=== PATIENT | female | born 1980 | race Caucasian/White ===

== ENCOUNTER 2016-10-07 16:57 | Emergency (ER) | payer MEDICAID ==
[~2016-10-07] VITALS: Ht 170.2 cm; Wt 68.0 kg
[~2016-10-07 16:57] MED LIST: ENTE0.5T2 PO; TACR1CAP4 PO
[2016-10-07 18:47] LABS: Basophils # (auto) 0 uL; Basophils % (auto) 0.5 % (0.0-2.0); Eosinophils # (auto) 0.1 uL; Eosinophils % (auto) 3.1 % (0.0-7.0); Hematocrit 32.8 % (36.0-46.0); Hemoglobin 11.2 g/dL (12.2-16.2); Lymphocytes # (auto) 0.9 uL; Lymphocytes % (auto) 26.8 % (10.0-50.0); Mean Corpuscular Hemoglobin 29.2 pg (28.0-32.0); Mean Corpuscular Hgb Conc. 34.3 g/dL (32.0-36.0); Mean Corpuscular Volume 85.2 fL (80.0-100.0); Mean Platelet Volume 9.9 fL (7.4-10.4); Monocytes # (auto) 0.2 uL; Monocytes % (auto) 7.2 % (0.0-12.0); Neutrophils # (auto) 2.1 uL; Neutrophils % (auto) 62.4 % (37.0-80.0); Platelet Count (auto) 102 10^3/uL (140-450); Red Cell Distribution Width 13.6 % (11.6-16.0); White Blood Cell 3.4 10^3/uL (4.4-10.8)
[2016-10-07] MEDS ORDERED: methylPREDNISolone SOD SUCC 125 MG/2 ML VL IM ONE (19:15)
[2016-10-07] MEDS ORDERED: ALBUTEROL SULF 2.5 MG/0.5ML(0.5%) NEB SOLN NEB ONE (19:15)
[2016-10-07] MEDS ORDERED: IPRATROPIUM BROM 0.5 MG/2.5ML INH SOL NEB ONE (19:15)
[2016-10-07 19:21] LABS: Albumin 3.6 g/dL (3.4-5.0); BUN/Creatinine Ratio 13.9; Calcium 8.5 mg/dL (8.5-10.1); Potassium 4.2 mmol/L (3.5-5.1)
[2016-10-07 19:23] LABS: Bilirubin, Total 0.3 mg/dL (0.2-1.0); Total Protein 6.9 g/dL (6.4-8.2)
[2016-10-07 19:56] VITALS: BP 114/78
== END 2016-10-07 20:23 | disposition home or self-care (01) ==
LOC: ER 17:19
DX: J45.909 Unspecified asthma, uncomplicated (principal); F17.210 Nicotine dependence, cigarettes, uncomplicated
CPT/HCPCS: 36415; 71020; 80053; 85025; 93005; 94640; 96372; 99285; J2930

== ENCOUNTER 2017-03-25 16:33 | Emergency (ER) | payer MEDICAID ==
[~2017-03-25] VITALS: Ht 170.2 cm; Wt 65.8 kg
[2017-03-25 17:09] VITALS: BP 110/80
[2017-03-25 18:08] LABS: Urine Bilirubin Negative (Negative); Urine Blood 2+ /uL (Negative); Urine Color Yellow (Yellow); Urine Glucose Normal (Normal); Urine Hyaline Cast MANY /lpf (0 - 2); Urine Ketone Negative (Negative); Urine Mucus FEW (None Seen); Urine Nitrite Negative (Negative); Urine RBC 253 /hpf (0 - 4); Urine Squamous Epithelial Cell FEW /hpf (<5)
[2017-03-25] MEDS ORDERED: IBUPROFEN 600 MG TAB PO ONE (20:15)
== END 2017-03-25 20:37 | disposition home or self-care (01) ==
LOC: ER 16:33
DX: K59.00 Constipation, unspecified (principal); R31.9 Hematuria, unspecified; J45.909 Unspecified asthma, uncomplicated
CPT/HCPCS: 74176; 81001; 81025

== ENCOUNTER 2017-03-26 08:32 | Emergency (ER) | payer MEDICAID ==
[~2017-03-26] VITALS: Ht 170.2 cm; Wt 65.8 kg
[2017-03-26 09:25] LABS: Urine Bilirubin Negative (Negative); Urine Blood 2+ /uL (Negative); Urine Color Yellow (Yellow); Urine Glucose Normal (Normal); Urine Hyaline Cast FEW /lpf (0 - 2); Urine Ketone Negative (Negative); Urine Nitrite Negative (Negative); Urine RBC 47 /hpf (0 - 4); Urine Squamous Epithelial Cell FEW /hpf (<5); Urine Urobilinogen Normal (Negative); Urine pH 5.5 (5.0-8.0)
[2017-03-26 09:36] LABS: Basophils # (auto) 0 uL; Basophils % (auto) 0.3 % (0.0-2.0); CONDITION Y; Eosinophils # (auto) 0.2 uL; Eosinophils % (auto) 4.1 % (0.0-7.0); Hematocrit 35.5 % (36.0-46.0); Hemoglobin 12.2 g/dL (12.2-16.2); Lymphocytes # (auto) 1.4 uL; Lymphocytes % (auto) 30.7 % (10.0-50.0); Mean Corpuscular Hemoglobin 29.1 pg (28.0-32.0); Mean Corpuscular Hgb Conc. 34.4 g/dL (32.0-36.0); Mean Corpuscular Volume 84.6 fL (80.0-100.0); Mean Platelet Volume 9.4 fL (7.4-10.4); Monocytes # (auto) 0.2 uL; Monocytes % (auto) 5.5 % (0.0-12.0); Neutrophils # (auto) 2.7 uL; Neutrophils % (auto) 59.4 % (37.0-80.0); Platelet Count (auto) 152 10^3/uL (140-450); Red Cell Distribution Width 14.4 % (11.6-16.0); White Blood Cell 4.5 10^3/uL (4.4-10.8)
[2017-03-26 09:51] LABS: Calcium 8.9 mg/dL (8.5-10.1); Potassium 5.1 mmol/L (3.5-5.1)
[2017-03-26 09:53] LABS: BUN/Creatinine Ratio 13.4
[2017-03-26 09:56] LABS: Bilirubin, Total 0.5 mg/dL (0.2-1.0); Total Protein 7.3 g/dL (6.4-8.2)
[2017-03-26] MEDS ORDERED: NALBUPHINE HCL 10 MG/1ml INJECTION IV ONE (10:30)
[2017-03-26] MEDS ORDERED: PROMETHAZINE HCL 25 MG/ML 1ML IV PRN (10:30)
[2017-03-26 11:02] LABS: INR 0.98 (0.9-1.15); Partial Thromboplastin Time 34.2 sec (22.64-33.71); Prothrombin Time 10.7 sec (9.37-12.3)
[2017-03-26 11:15] LABS: Magnesium 2.5 mg/dL (1.6-2.6)
[2017-03-26 12:07] VITALS: BP 99/52
== END 2017-03-26 12:41 | disposition home or self-care (01) ==
LOC: ER 08:32
DX: S33.5XXA Sprain of ligaments of lumbar spine, initial encounter (principal); Z98.51 Tubal ligation status; M79.1 Myalgia; N18.4 Chronic kidney disease, stage 4 (severe); Z94.4 Liver transplant status; R11.2 Nausea with vomiting, unspecified; X58.XXXA Exposure to other specified factors, initial encounter; Y93.89 Activity, other specified; Y92.89 Other specified places as the place of occurrence of the external cause; Y99.8 Other external cause status
CPT/HCPCS: 36415; 71020; 80053; 81001; 81025; 83690; 83735; 85025; 85610; 85730; 93005; 96374; 96375; 99285; J2300; J2550

== ENCOUNTER 2017-03-30 00:42 | Emergency (ER) | payer MEDICAID ==
[~2017-03-30] VITALS: Ht 167.6 cm; Wt 63.5 kg
[2017-03-30 02:30] LABS: Basophils # (auto) 0 uL; Basophils % (auto) 0.5 % (0.0-2.0); CONDITION Y; Eosinophils # (auto) 0.1 uL; Eosinophils % (auto) 2.8 % (0.0-7.0); Hematocrit 30.4 % (36.0-46.0); Hemoglobin 10.3 g/dL (12.2-16.2); Lymphocytes # (auto) 1.1 uL; Lymphocytes % (auto) 27.4 % (10.0-50.0); Mean Corpuscular Hgb Conc. 33.8 g/dL (32.0-36.0); Mean Corpuscular Volume 85.7 fL (80.0-100.0); Mean Platelet Volume 9.6 fL (7.4-10.4); Monocytes # (auto) 0.2 uL; Monocytes % (auto) 4.9 % (0.0-12.0); Neutrophils # (auto) 2.5 uL; Neutrophils % (auto) 64.4 % (37.0-80.0); Platelet Count (auto) 116 10^3/uL (140-450); Red Cell Distribution Width 14.6 % (11.6-16.0); White Blood Cell 3.8 10^3/uL (4.4-10.8)
[2017-03-30 02:58] LABS: Albumin 3.4 g/dL (3.4-5.0); BUN/Creatinine Ratio 13.3; Calcium 8.1 mg/dL (8.5-10.1); Potassium 4.3 mmol/L (3.5-5.1)
[2017-03-30 03:01] LABS: Bilirubin, Total 0.3 mg/dL (0.2-1.0); Total Protein 6.6 g/dL (6.4-8.2)
[2017-03-30 08:45] LABS: Urine Bilirubin Negative (Negative); Urine Blood 2+ /uL (Negative); Urine Color Colorless (Yellow); Urine Glucose Normal (Normal); Urine Ketone Negative (Negative); Urine Nitrite Negative (Negative); Urine RBC 3 /hpf (0 - 4); Urine Squamous Epithelial Cell FEW /hpf (<5); Urine Urobilinogen Normal (Negative); Urine pH 5.5 (5.0-8.0)
[2017-03-30 10:57] VITALS: BP 106/67
== END 2017-03-30 11:40 | disposition home or self-care (01) ==
LOC: EDBD 00:42 → ER 00:42
DX: R10.9 Unspecified abdominal pain (principal); R82.71 Bacteriuria; Z94.4 Liver transplant status; Z87.442 Personal history of urinary calculi; J45.909 Unspecified asthma, uncomplicated; F12.10 Cannabis abuse, uncomplicated; G89.29 Other chronic pain; M54.9 Dorsalgia, unspecified
CPT/HCPCS: 36415; 80053; 81001; 85025

== ENCOUNTER 2017-09-12 13:18 | Emergency (ER) | payer MEDICAID ==
[~2017-09-12] VITALS: Ht 170.2 cm; Wt 68.0 kg
[~2017-09-12 13:18] MED LIST changes: +ENTE0.5T PO; -ENTE0.5T2 PO
[2017-09-12 13:52] VITALS: BP 127/82
[2017-11-06] MEDS ORDERED: HYDR50TA69 PO (17:43)
[2017-11-06] MEDS ORDERED: MIRT15TA3 PO (17:43)
== END 2017-09-12 14:14 | disposition home or self-care (01) ==
LOC: ER 13:18
DX: S76.012A Strain of muscle, fascia and tendon of left hip, initial encounter (principal); J45.909 Unspecified asthma, uncomplicated; Z87.442 Personal history of urinary calculi; Z98.51 Tubal ligation status; W07.XXXA Fall from chair, initial encounter; Y93.01 Activity, walking, marching and hiking; Y92.000 Kitchen of unspecified non-institutional (private) residence as the place of occurrence of the external cause; Y99.8 Other external cause status
CPT/HCPCS: 73502

== ENCOUNTER 2017-12-30 20:13 | Emergency (ER) | payer MEDICAID ==
[~2017-12-30] VITALS: Ht 170.2 cm; Wt 65.8 kg
[~2017-12-30 20:13] MED LIST changes: +HYDR50TA69 PO; +MIRT15TA3 PO
[2017-12-30 20:20] VITALS: BP 106/73
[2017-12-30] MEDS ORDERED: HYDROcodone-ACET 10/325MG TAB PO ONE (23:15)
== END 2017-12-30 23:53 | disposition home or self-care (01) ==
LOC: ER 20:13
DX: S50.12XA Contusion of left forearm, initial encounter (principal); S50.11XA Contusion of right forearm, initial encounter; S60.212A Contusion of left wrist, initial encounter; S60.211A Contusion of right wrist, initial encounter; M79.1 Myalgia; J45.909 Unspecified asthma, uncomplicated; W01.0XXA Fall on same level from slipping, tripping and stumbling without subsequent striking against object, initial encounter; Y93.89 Activity, other specified; Y92.89 Other specified places as the place of occurrence of the external cause; Y99.8 Other external cause status; Z87.442 Personal history of urinary calculi
CPT/HCPCS: 73030; 73090; 73100

== ENCOUNTER 2018-01-15 10:49 | Emergency (ER) | payer MEDICAID, OTHER ==
[~2018-01-15] VITALS: Ht 170.2 cm; Wt 64.9 kg
[2018-01-15 11:18] VITALS: BP 133/87
== END 2018-01-15 12:04 | disposition home or self-care (01) ==
LOC: ER 10:49
DX: L03.031 Cellulitis of right toe (principal); J45.909 Unspecified asthma, uncomplicated; Z79.899 Other long term (current) drug therapy; Z87.442 Personal history of urinary calculi; Z98.51 Tubal ligation status

== ENCOUNTER 2019-10-04 15:13 | Emergency (ER) | payer MEDICAID ==
[~2019-10-04] VITALS: Ht 170.2 cm; Wt 70.3 kg
[~2019-10-04 15:13] MED LIST changes: -MIRT15TA3 PO; +MIRT1TAB38 PO
[2019-10-04 15:25] VITALS: BP 105/79
[2019-10-04 16:07] LABS: Albumin 3.6 g/dL (3.4-5.0); Calcium 8.4 mg/dL (8.5-10.1); Potassium 4.5 mmol/L (3.5-5.1)
[2019-10-04 16:09] LABS: BUN/Creatinine Ratio 11.8
[2019-10-04 16:11] LABS: Bilirubin, Total 0.3 mg/dL (0.2-1.0); Total Protein 7.3 g/dL (6.4-8.2)
[2019-10-04 16:48] LABS: Basophils # (auto) 0 uL; Monocytes # (auto) 0.2 uL; Neutrophils # (auto) 2.6 uL
[2019-10-04 17:00] LABS: Partial Thromboplastin Time 26.5 sec (23.64-32.05)
[2019-10-04 17:02] LABS: Basophils % (auto) 0.6 % (0.0-2.0); Eosinophils # (auto) 0.2 uL; Eosinophils % (auto) 3.8 % (0.0-7.0); Hematocrit 27.9 % (36.0-46.0); Hemoglobin 8.7 g/dL (12.2-16.2); Lymphocytes % (auto) 25.8 % (10.0-50.0); Mean Corpuscular Hemoglobin 20.3 pg (28.0-32.0); Mean Corpuscular Volume 65.5 fL (80.0-100.0); Monocytes % (auto) 5.9 % (0.0-12.0); Neutrophils % (auto) 63.9 % (37.0-80.0); Platelet Count (auto) 105 10^3/uL (140-450); Red Blood Cells 4.26 10^6/uL (4.0-5.20); Red Cell Distribution Width 18.9 % (11.8-14.3)
[2019-10-04 17:05] LABS: Urine Bacteria FEW /hpf (None Seen); Urine Blood 2+ /uL (Negative); Urine Hyaline Cast MANY /lpf (0 - 2); Urine Mucus FEW (None Seen); Urine Specific Gravity 1.024 (1.001-1.035); Urine WBC 6 /hpf (0 - 5)
== END 2019-10-05 00:27 | disposition left against medical advice (07) ==
LOC: ER 15:17
DX: N93.9 Abnormal uterine and vaginal bleeding, unspecified (principal); R11.2 Nausea with vomiting, unspecified; J45.909 Unspecified asthma, uncomplicated; Z79.899 Other long term (current) drug therapy
CPT/HCPCS: 36415; 80053; 81001; 84702; 85025; 85610; 85730

== ENCOUNTER 2020-05-29 15:20 | Emergency (ER) | payer MEDICAID ==
[~2020-05-29] VITALS: Ht 170.2 cm; Wt 68.0 kg
[2020-05-29 16:21] LABS: Urine Bacteria FEW /hpf (None Seen); Urine Blood Negative /uL (Negative); Urine Mucus FEW (None Seen); Urine Specific Gravity 1.008 (1.001-1.035); Urine WBC 4 /hpf (0 - 5)
[2020-05-29 18:14] LABS: Basophils # (auto) 0 10 ^3/uL (0-0.2); Eosinophils # (auto) 0.1 10 ^3/uL (0-0.8); Lymphocytes # (auto) 1.1 10 ^3/uL (0.4-5.4); Mean Corpuscular Volume 61.8 fL (80.0-100.0); Nucleated Red Blood Cells % 0.1 %; White Blood Cell 4.4 10^3/uL (4.4-10.8)
[2020-05-29 18:15] LABS: Basophils % (auto) 0.3 % (0.0-2.0); Eosinophils % (auto) 1.4 % (0.0-7.0); Hematocrit 23.2 % (36.0-46.0); Lymphocytes % (auto) 23.9 % (10.0-50.0); Mean Corpuscular Hemoglobin 18.8 pg (28.0-32.0); Mean Corpuscular Hgb Conc. 30.4 g/dL (32.0-36.0); Monocytes # (auto) 0.3 10 ^3/uL (0-1.3); Monocytes % (auto) 6.1 % (0.0-12.0); Neutrophils % (auto) 68.3 % (37.0-80.0); Platelet Count (auto) 124 10^3/uL (140-450); Red Blood Cells 3.74 10^6/uL (4.0-5.20)
[2020-05-29 18:24] LABS: Red Cell Distribution Width 20.1 % (11.8-14.3)
[2020-05-29 18:28] LABS: INR 0.98 (0.9-1.15); Partial Thromboplastin Time 25.1 sec (23.0-31.2)
[2020-05-29 18:33] LABS: Albumin 3.9 g/dL (3.4-5.0); BUN/Creatinine Ratio 8.5; Calcium 9.2 mg/dL (8.5-10.1); Potassium 4.2 mmol/L (3.5-5.1)
[2020-05-29 18:36] LABS: Bilirubin, Total 0.6 mg/dL (0.2-1.0); Total Protein 7.5 g/dL (6.4-8.2)
[2020-05-29] MEDS ORDERED: FERROUS SULFATE 325 MG TAB PO ONE (18:45)
[2020-05-29 18:50] VITALS: BP 120/68
== END 2020-05-29 18:55 | disposition home or self-care (01) ==
LOC: ER 15:20
DX: D64.9 Anemia, unspecified (principal)
CPT/HCPCS: 36415; 80053; 81001; 85025; 85610; 85730; 86850; 86900; 86901

== ENCOUNTER 2021-06-19 09:58 | Emergency (ER) | payer MEDICAID ==
[~2021-06-19] VITALS: Ht 170.2 cm; Wt 86.2 kg
[2021-06-19] MEDS ORDERED: ONDANSETRON ODT 4 MG TAB PO ONE (12:30)
[2021-06-19] MEDS ORDERED: ACETAMINOPHEN/CODEINE#3 (300/30mg) TAB PO ONE (12:30)
[2021-06-19 13:27] VITALS: BP 132/80
== END 2021-06-19 13:30 | disposition home or self-care (01) ==
LOC: ER 09:58
DX: G43.909 Migraine, unspecified, not intractable, without status migrainosus (principal); J45.909 Unspecified asthma, uncomplicated
CPT/HCPCS: 70450; 99284; Q0162

== ENCOUNTER 2023-03-06 08:58 | Emergency (ER) | payer MEDICAID ==
[~2023-03-06] VITALS: Ht 170.2 cm; Wt 96.6 kg
[2023-03-06 09:24] VITALS: BP 125/71; PULSE 82; RESP 16; TEMP 97.5; O2SAT 96
== END 2023-03-06 10:26 | disposition home or self-care (01) ==
LOC: ER 08:58
DX: S76.012A Strain of muscle, fascia and tendon of left hip, initial encounter (principal); S93.492A Sprain of other ligament of left ankle, initial encounter; F41.9 Anxiety disorder, unspecified; J45.909 Unspecified asthma, uncomplicated; F32.9 Major depressive disorder, single episode, unspecified; F17.200 Nicotine dependence, unspecified, uncomplicated; F15.90 Other stimulant use, unspecified, uncomplicated; Z87.442 Personal history of urinary calculi; Z98.890 Other specified postprocedural states; Z79.899 Other long term (current) drug therapy; W18.39XA Other fall on same level, initial encounter; Y93.01 Activity, walking, marching and hiking; Y92.89 Other specified places as the place of occurrence of the external cause; Y99.8 Other external cause status
CPT/HCPCS: 73502; 73610

== ENCOUNTER 2023-08-01 13:05 | Emergency (ER) | payer MEDICAID ==
[2023-08-01] MEDS ORDERED: PROCHLORPERAZINE EDISYLATE 5 MG/ML 2ML VIAL IV ONE (13:45)
[2023-08-01] MEDS ORDERED: PANTOPRAZOLE 40 MG/10 ML VIAL INJ IV ONE (13:45)
[2023-08-01] MEDS ORDERED: SODIUM CHLORIDE 0.9% 1,000 ML IV ONE (13:45)
[2023-08-01 14:29] LABS: Alanine Aminotransferase 13 U/L (7-40); Alkaline Phosphatase 65 U/L (46-116); Anion Gap 11 (5-15); Aspartate Aminotransferase 10 U/L (13-40); BUN/Creatinine Ratio 15.7 (10.0-20.0); Blood Urea Nitrogen 22 mg/dL (9-23); Calcium 9.5 mg/dL (8.5-10.1); Carbon Dioxide 21 mmol/L (20-30); Chloride 107 mmol/L (98-107); Glucose 121 mg/dL (74-106); Potassium 3.9 mmol/L (3.5-5.1); Sodium 139 mmol/L (136-145)
[2023-08-01 14:30] LABS: Albumin 4.6 g/dL (3.2-4.8); Bilirubin, Total 0.4 mg/dL (0.2-1.0); Total Protein 7.2 g/dL (5.7-8.2)
[2023-08-01 15:33] LABS: Urine Bacteria NONE SEEN /hpf (None Seen); Urine Blood 1+ /uL (Negative); Urine Clarity Clear (Clear); Urine Color Yellow (Yellow); Urine Mucus FEW (None Seen); Urine Protein, UAD TRACE (Negative); Urine Specific Gravity 1.022 (1.001-1.035); Urine WBC 4 /hpf (0 - 5)
[2023-08-01 15:41] VITALS: BP 119/71; PULSE 53; RESP 18; TEMP 97.7; O2SAT 98
[2023-08-01] MEDS ORDERED: ZOFR4T PO (15:44)
== END 2023-08-01 16:38 | disposition home or self-care (01) ==
LOC: ER 13:05
DX: R11.10 Vomiting, unspecified (principal); G89.4 Chronic pain syndrome; J45.909 Unspecified asthma, uncomplicated; F12.10 Cannabis abuse, uncomplicated; R51.9 Headache, unspecified; Z98.51 Tubal ligation status; Z87.442 Personal history of urinary calculi
CPT/HCPCS: 36415; 80053; 81001; 96361; 96374; 96375; 99284; C9113; J0780; J7030

== ENCOUNTER 2024-05-10 00:07 | Inpatient (IN) | payer MEDICAID ==
[~2024-05-10] VITALS: Ht 170.2 cm; Wt 97.6 kg
[~2024-05-10 00:07] MED LIST changes: +ZOFR4T PO
[2024-05-10 01:59] LABS: Basophils # (auto) 0 10 ^3/uL (0-0.2); Basophils % (auto) 0.3 % (0.0-2.0); Eosinophils # (auto) 0 10 ^3/uL (0-0.8); Hematocrit 47.1 % (36.0-46.0); Hemoglobin 16.5 g/dL (12.2-16.2); Lymphocytes # (auto) 1.5 10 ^3/uL (0.4-5.4); Lymphocytes % (auto) 10.2 % (10.0-50.0); Mean Corpuscular Hemoglobin 29.5 pg (28.0-32.0); Mean Corpuscular Hgb Conc. 35.1 g/dL (32.0-36.0); Mean Corpuscular Volume 84.1 fL (80.0-100.0); Monocytes # (auto) 0.8 10 ^3/uL (0-1.3); Monocytes % (auto) 5.6 % (0.0-12.0); Neutrophils # (auto) 12.1 10 ^3/uL (1.6-8.6); Neutrophils % (auto) 83.9 % (37.0-80.0); Nucleated Red Blood Cells % 0.1 %; Platelet Count (auto) 264 10^3/uL (140-450); Red Cell Distribution Width 14.5 % (11.8-14.3); White Blood Cell 14.4 10^3/uL (4.4-10.8)
[2024-05-10 02:16] LABS: Albumin 5.4 g/dL (3.2-4.8); Alkaline Phosphatase 78 U/L (46-116); Anion Gap 23 (5-15); Aspartate Aminotransferase 11 U/L (13-40); BUN/Creatinine Ratio 7.9 (10.0-20.0); Bilirubin, Total 0.9 mg/dL (0.2-1.0); Blood Urea Nitrogen 21 mg/dL (9-23); Calcium 11.1 mg/dL (8.7-10.4); Carbon Dioxide 15 mmol/L (20-31); Chloride 95 mmol/L (98-107); Glucose 218 mg/dL (74-106); Lipase 28 U/L (12-53); Potassium 3.3 mmol/L (3.5-5.1); Sodium 133 mmol/L (136-145)
[2024-05-10 02:27] LABS: Alanine Aminotransferase 9 U/L (7-40)
[2024-05-10 02:49] LABS: Lactic Acid w/Reflex 3.5 mmol/L (0.4-2.0)
[2024-05-10 03:40] VITALS: PULSE 94; RESP 17; O2SAT 98
[2024-05-10] MEDS: SODIUM CHLORIDE 0.9% 1,000 ML IV ONE (03:43)
[2024-05-10] MEDS: ONDANSETRON HCL 4 MG/2 ML VIAL IV ONE (03:44)
[2024-05-10] MEDS: FAMOTIDINE (10MG/ML) 2ML VL IV ONE ×2 (03:46→11:19)
[2024-05-10] MEDS: KETOROLAC TROMETH 30 MG/ML 1ML VIAL IV ONE ×2 (03:46→16:17)
[2024-05-10 08:43] VITALS: PULSE 91; RESP 17; O2SAT 96
[2024-05-10] MEDS ORDERED: HYDROXYZINE HCL 50 MG PO SCH (09:45)
[2024-05-10] MEDS ORDERED: NITROGLYCERIN 0.4 MG SL TAB SL PRN (09:45)
[2024-05-10] MEDS ORDERED: DOCUSATE SOD 100 MG CAP PO PRN (09:45)
[2024-05-10] MEDS ORDERED: FAMOTIDINE (10MG/ML) 2ML VL IV SCH (10:00)
[2024-05-10] MEDS ORDERED: [UNRECOGNIZED DRUG - OTHER] PO SCH (10:00)
[2024-05-10] MEDS: FAMOTIDINE (10MG/ML) 2ML VL IV SCH (10:15)
[2024-05-10 10:34] LABS: Magnesium 1.8 mg/dL (1.6-2.6)
[2024-05-10 10:35] LABS: Phosphorus 2.1 mg/dL (2.4-5.1)
[2024-05-10] MEDS: SODIUM CHLORIDE 0.9% 1,000 ML IV SCH (11:18)
[2024-05-10] MEDS: cefTRIAXone 1GM/50ML D5W 50 ML IV ONE ×2 (11:19→11:35)
[2024-05-10] MEDS: PANTOPRAZOLE 40 MG/10 ML VIAL INJ IV ONE (11:19)
[2024-05-10] MEDS: ONDANSETRON HCL 4 MG/2 ML VIAL IV PRN (12:07)
[2024-05-10] MEDS: ONDANSETRON HCL 4 MG/2 ML VIAL ONE (12:08)
[2024-05-10 13:14] VITALS: PULSE 70; RESP 18; O2SAT 96
[2024-05-10 13:19] VITALS: PULSE 70; RESP 18; O2SAT 96
[2024-05-10] MEDS ORDERED: KETOROLAC TROMETH 30 MG/ML 1ML VIAL IV ONE (16:00)
[2024-05-10] MEDS: MIRTAZAPINE PO SCH (18:00)
[2024-05-10] MEDS ORDERED: MIRTAZAPINE PO SCH (18:00)
[2024-05-10] MEDS: PANTOPRAZOLE 40 MG/10 ML VIAL INJ IV SCH (21:40)
[2024-05-10] MEDS ORDERED: TACROLIMUS 1 MG CAP PO SCH ×2 (22:00)
[2024-05-10 22:34] VITALS: BP_SYST 107; BP_SYST 120; BP_DIAS 60; BP_DIAS 64; PULSE 67; PULSE 72; RESP 16; RESP 17; TEMP 97.5; TEMP 98; O2SAT 96; O2SAT 97
[2024-05-10 23:34] VITALS: PULSE 75; RESP 18; O2SAT 98
[2024-05-11 06:39] LABS: Basophils # (auto) 0 10 ^3/uL (0-0.2); Basophils % (auto) 0.1 % (0.0-2.0); Eosinophils # (auto) 0 10 ^3/uL (0-0.8); Eosinophils % (auto) 0.1 % (0.0-7.0); Hematocrit 37.4 % (36.0-46.0); Hemoglobin 13.3 g/dL (12.2-16.2); Lymphocytes % (auto) 22.7 % (10.0-50.0); Mean Corpuscular Hemoglobin 30.3 pg (28.0-32.0); Mean Corpuscular Hgb Conc. 35.6 g/dL (32.0-36.0); Mean Corpuscular Volume 85.1 fL (80.0-100.0); Monocytes # (auto) 0.6 10 ^3/uL (0-1.3); Monocytes % (auto) 6.5 % (0.0-12.0); Neutrophils # (auto) 6.2 10 ^3/uL (1.6-8.6); Neutrophils % (auto) 70.6 % (37.0-80.0); Nucleated Red Blood Cells % 0.1 %; Platelet Count (auto) 112 10^3/uL (140-450); Red Blood Cells 4.39 10^6/uL (4.0-5.20); Red Cell Distribution Width 14.5 % (11.8-14.3); White Blood Cell 8.8 10^3/uL (4.4-10.8)
[2024-05-11 06:42] LABS: Alanine Aminotransferase 10 U/L (7-40); Alkaline Phosphatase 56 U/L (46-116); Anion Gap 12 (5-15); Aspartate Aminotransferase 18 U/L (13-40); BUN/Creatinine Ratio 12.9 (10.0-20.0); Blood Urea Nitrogen 30 mg/dL (9-23); Calcium 8.7 mg/dL (8.7-10.4); Carbon Dioxide 25 mmol/L (20-31); Chloride 101 mmol/L (98-107); Glucose 77 mg/dL (74-106); Potassium 2.7 mmol/L (3.5-5.1); Sodium 138 mmol/L (136-145)
[2024-05-11 06:43] LABS: Bilirubin, Total 0.8 mg/dL (0.2-1.0); Total Protein 6.6 g/dL (5.7-8.2)
[2024-05-11] MEDS ORDERED: TACROLIMUS 1 MG CAP PO SCH ×2 (07:00)
[2024-05-11 08:30] VITALS: PULSE 75; PULSE 76; RESP 20; O2SAT 99
[2024-05-11 09:00] VITALS: BP 104/69; PULSE 79; RESP 20; TEMP 98.8; O2SAT 99
[2024-05-11] MEDS: cefTRIAXone 1GM/50ML D5W 50 ML IV SCH (09:25)
[2024-05-11] MEDS ORDERED: hydrOXYzine 25 MG TAB or CAP PO PRN (10:00)
[2024-05-11] MEDS: MAGNESIUM SULFATE 1GM/100ML 100 ML IV ONE (10:22)
[2024-05-11] MEDS: POTASSIUM CHLORIDE 80 MEQ, LIDOCAINE 1% (LOCAL ANESTH.) 6 ML in SODIUM CHL 0.9% 500 ML IV STA (10:32)
[2024-05-11] MEDS: KETOROLAC TROMETH 30 MG/ML 1ML VIAL IV PRN (10:33)
[2024-05-11 11:50] LABS: Potassium 3.4 mmol/L (3.5-5.1)
[2024-05-11 11:57] LABS: Magnesium 2.3 mg/dL (1.6-2.6)
[2024-05-11 13:00] VITALS: BP 127/72; PULSE 73; RESP 20; TEMP 98.1; O2SAT 94
[2024-05-11 13:00] LABS: Urine Bacteria None Seen /hpf (None Seen)
[2024-05-11 13:24] LABS: Urine Blood Negative /uL (Negative); Urine Clarity Clear (Clear); Urine Color Yellow (Yellow); Urine Hyaline Cast FEW /lpf (0 - 2); Urine Mucus FEW (None Seen); Urine Protein, UAD TRACE (Negative); Urine Urobilinogen Normal (Negative); Urine WBC 4 /hpf (0 - 5); Urine pH 5.5 (5.0-9.0)
[2024-05-11 16:39] VITALS: BP 129/81; PULSE 90; RESP 20; TEMP 98.6; O2SAT 97
[2024-05-11 18:08] LABS: Potassium 3.5 mmol/L (3.5-5.1)
[2024-05-11 18:15] LABS: Magnesium 2.1 mg/dL (1.6-2.6)
[2024-05-11 20:00] VITALS: PULSE 77
[2024-05-11 20:56] VITALS: BP 143/79; PULSE 78; RESP 18; TEMP 98.1; O2SAT 96
[2024-05-11 21:21] LABS: Amphetamine Screen, Urine Neg (NEGATIVE); Barbiturate Scree,Urine Neg (NEGATIVE); Benzodiazephine Screen, Urine Neg (NEGATIVE); Cannabinoid Screen, Urine Pos (NEGATIVE); Cocaine Screen, Urine Neg (NEGATIVE); Opiate Scree,Urine Neg (NEGATIVE); Phencyclidine Screen, Urine Neg (NEGATIVE)
[2024-05-11] MEDS: POTASSIUM CHLORIDE 20 MEQ, LIDOCAINE 1% (LOCAL ANESTH.) 2 ML in SODIUM CHL 0.9% 100 ML IV ONE (22:01)
[2024-05-11] MEDS: MORPHINE SULFATE INJ 2 MG/ml SYRG IV PRN (22:35)
[2024-05-12] VITALS (8 sets, daily range): BP systolic 108–140; BP diastolic 67–83; PULSE 64–85; RESP 15–20; TEMP 97.6–98.7; O2SAT 93–98
[2024-05-12 01:38] LABS: Creatinine, Urine 208.73 mg/dL (30.0-125.0)
[2024-05-12 02:46] LABS: COVID19 ANTIGEN SOFIA FIA NEGATIVE (NEGATIVE); Rapid Influenza A Negative (Negative); Rapid Influenza B Negative (Negative)
[2024-05-12 06:19] LABS: Basophils # (auto) 0 10 ^3/uL (0-0.2); Basophils % (auto) 0.3 % (0.0-2.0); Eosinophils # (auto) 0 10 ^3/uL (0-0.8); Eosinophils % (auto) 0.9 % (0.0-7.0); Hematocrit 35.1 % (36.0-46.0); Hemoglobin 12.3 g/dL (12.2-16.2); Lymphocytes # (auto) 1.5 10 ^3/uL (0.4-5.4); Lymphocytes % (auto) 30.6 % (10.0-50.0); Mean Corpuscular Hemoglobin 29.8 pg (28.0-32.0); Mean Corpuscular Volume 85.3 fL (80.0-100.0); Monocytes # (auto) 0.4 10 ^3/uL (0-1.3); Monocytes % (auto) 7.2 % (0.0-12.0); Neutrophils # (auto) 3.1 10 ^3/uL (1.6-8.6); Nucleated Red Blood Cells % 0.3 %; Platelet Count (auto) 107 10^3/uL (140-450); Red Blood Cells 4.11 10^6/uL (4.0-5.20); Red Cell Distribution Width 14.4 % (11.8-14.3)
[2024-05-12 06:24] LABS: Calcium 8.6 mg/dL (8.7-10.4); Chloride 108 mmol/L (98-107); Potassium 3.7 mmol/L (3.5-5.1); Sodium 141 mmol/L (136-145)
[2024-05-12 06:25] LABS: Anion Gap 9 (5-15); Carbon Dioxide 24 mmol/L (20-31)
[2024-05-12 06:30] LABS: BUN/Creatinine Ratio 13.4 (10.0-20.0); Blood Urea Nitrogen 19 mg/dL (9-23); Glucose 75 mg/dL (74-106)
[2024-05-12] MEDS: [UNRECOGNIZED DRUG - OTHER] PO SCH (08:39)
[2024-05-12] MEDS ORDERED: FLUMAZENIL 0.1 MG/ML INJ 10ML MDV IV ONE (12:54)
[2024-05-12] MEDS ORDERED: SODIUM CHLORIDE LOCK 10 ML ONE (13:00)
[2024-05-12] MEDS ORDERED: NALOXONE HCL 0.4 MG/ML VIAL ONE (13:00)
[2024-05-12] MEDS: MIDAZOLAM HCL 5 MG/ML-1ML VIAL ONE (13:16)
[2024-05-12] MEDS: fentaNYL CITRATE 100 MCG/2 ML VL ONE ×2 (13:16→13:20)
[2024-05-12] MEDS: LIDOCAINE VISCOUS 2% 15ML UD ONE (13:16)
[2024-05-12] MEDS: diphenhdrAMINE HCL 50 MG/1 ML VL ONE (13:16)
[2024-05-12] MEDS ORDERED: PANT40TA2 PO (13:50)
[2024-05-12] MEDS ORDERED: SUCR1SUS26 PO (13:50)
[2024-05-12] MEDS: SUCRALFATE 1 GM/10 ML ORAL SUSP GT SCH (17:53)
[2024-05-13 05:00] VITALS: BP 131/82; PULSE 69; RESP 18; TEMP 97.9; O2SAT 98
[2024-05-13 06:16] LABS: Anion Gap 10 (5-15); Basophils # (auto) 0 10 ^3/uL (0-0.2); Basophils % (auto) 0.5 % (0.0-2.0); Carbon Dioxide 22 mmol/L (20-31); Chloride 109 mmol/L (98-107); Eosinophils # (auto) 0.1 10 ^3/uL (0-0.8); Eosinophils % (auto) 2.4 % (0.0-7.0); Hematocrit 37.5 % (36.0-46.0); Hemoglobin 13.3 g/dL (12.2-16.2); Lymphocytes # (auto) 1.5 10 ^3/uL (0.4-5.4); Lymphocytes % (auto) 37.7 % (10.0-50.0); Mean Corpuscular Hemoglobin 30.5 pg (28.0-32.0); Mean Corpuscular Hgb Conc. 35.4 g/dL (32.0-36.0); Mean Corpuscular Volume 86.1 fL (80.0-100.0); Monocytes # (auto) 0.3 10 ^3/uL (0-1.3); Monocytes % (auto) 7.6 % (0.0-12.0); Neutrophils % (auto) 51.8 % (37.0-80.0); Nucleated Red Blood Cells % 0.1 %; Platelet Count (auto) 107 10^3/uL (140-450); Potassium 3.8 mmol/L (3.5-5.1); Red Blood Cells 4.35 10^6/uL (4.0-5.20); Red Cell Distribution Width 14.3 % (11.8-14.3); Sodium 141 mmol/L (136-145); White Blood Cell 3.9 10^3/uL (4.4-10.8)
[2024-05-13 06:22] LABS: BUN/Creatinine Ratio 6.6 (10.0-20.0); Glucose 76 mg/dL (74-106)
[2024-05-13 06:43] LABS: Blood Urea Nitrogen 8 mg/dL (9-23)
[2024-05-13 08:00] VITALS: PULSE 68; RESP 16; O2SAT 98
[2024-05-13 09:00] VITALS: BP 142/82; PULSE 69; RESP 18; TEMP 97.2; O2SAT 98
[2024-05-13] MEDS: ONDANSETRON HCL 4 MG/2 ML VIAL IV ONE (09:45)
[2024-05-13] MEDS: NYSTATIN (MOUTH-THROAT) 500,000 UNITS/5 ML SUSP MT SCH (10:39)
[2024-05-13 13:00] VITALS: BP 146/86; PULSE 93; RESP 18; TEMP 98; O2SAT 96
[2024-05-13 17:00] VITALS: BP 135/88; PULSE 77; RESP 18; TEMP 98.2; O2SAT 94
[2024-05-13 21:00] VITALS: BP 141/85; PULSE 69; RESP 16; TEMP 98.3; O2SAT 96
[2024-05-14 01:00] VITALS: BP 115/70; PULSE 85; RESP 18; TEMP 98.1; O2SAT 93
[2024-05-14 05:00] VITALS: BP 119/73; PULSE 74; RESP 16; TEMP 97.8; O2SAT 94
[2024-05-14 07:09] LABS: Basophils # (auto) 0 10 ^3/uL (0-0.2); Basophils % (auto) 0.4 % (0.0-2.0); Eosinophils # (auto) 0.2 10 ^3/uL (0-0.8); Eosinophils % (auto) 3.5 % (0.0-7.0); Hematocrit 36.8 % (36.0-46.0); Hemoglobin 12.7 g/dL (12.2-16.2); Lymphocytes # (auto) 1.6 10 ^3/uL (0.4-5.4); Lymphocytes % (auto) 36.1 % (10.0-50.0); Mean Corpuscular Hgb Conc. 34.6 g/dL (32.0-36.0); Mean Corpuscular Volume 86.7 fL (80.0-100.0); Monocytes # (auto) 0.4 10 ^3/uL (0-1.3); Monocytes % (auto) 8.2 % (0.0-12.0); Neutrophils # (auto) 2.3 10 ^3/uL (1.6-8.6); Neutrophils % (auto) 51.8 % (37.0-80.0); Nucleated Red Blood Cells % 0.1 %; Platelet Count (auto) 115 10^3/uL (140-450); Red Blood Cells 4.24 10^6/uL (4.0-5.20); White Blood Cell 4.4 10^3/uL (4.4-10.8)
[2024-05-14 07:17] LABS: Chloride 109 mmol/L (98-107); Potassium 3.8 mmol/L (3.5-5.1); Sodium 141 mmol/L (136-145)
[2024-05-14 07:18] LABS: Anion Gap 8 (5-15); Carbon Dioxide 24 mmol/L (20-31)
[2024-05-14 07:19] LABS: Calcium 9.2 mg/dL (8.7-10.4)
[2024-05-14 07:23] LABS: Blood Urea Nitrogen 6 mg/dL (9-23); Glucose 79 mg/dL (74-106)
[2024-05-14 09:00] VITALS: BP 146/93; PULSE 68; RESP 20; TEMP 98; O2SAT 98
[2024-05-14 13:00] VITALS: BP 136/87; PULSE 80; RESP 20; TEMP 98.1; O2SAT 95
[2024-05-14] MEDS ORDERED: MAALOX PLUS or MAALOX 30 ML PO PRN (14:45)
[2024-05-14] MEDS: MAALOX PLUS or MAALOX 30 ML PO ONE (14:58)
[2024-05-14 17:00] VITALS: BP 117/96; PULSE 83; RESP 17; TEMP 98.1; O2SAT 96
[2024-05-14 21:00] VITALS: BP 130/68; PULSE 103; RESP 18; TEMP 98.3; O2SAT 100
[2024-05-14] MEDS ORDERED: FAMOTIDINE (10MG/ML) 2ML VL IV SCH (22:00)
== END 2024-05-14 21:12 | disposition home or self-care (01) | DRG 720 ==
LOC: ER 00:07 → TELE 09:50 → ER 09:50 → TELE-WESTW 23:05 → WEST WING 05-11 23:32
PROVIDERS: ADMIT Internal Medicine; ATTEND Internal Medicine
PROC: 0DB68ZX Excision of Stomach, Via Natural or Artificial Opening Endoscopic, Diagnostic (ICD-10-PCS; 2024-05-12)
PROC: 0DB58ZX Excision of Esophagus, Via Natural or Artificial Opening Endoscopic, Diagnostic (ICD-10-PCS; 2024-05-12)
PROC: 0DB98ZX Excision of Duodenum, Via Natural or Artificial Opening Endoscopic, Diagnostic (ICD-10-PCS; principal; 2024-05-12 13:13)
DX: A41.9 Sepsis, unspecified organism (principal); E87.20 Acidosis, unspecified; N17.9 Acute kidney failure, unspecified; E87.1 Hypo-osmolality and hyponatremia; B37.81 Candidal esophagitis; K22.10 Ulcer of esophagus without bleeding; E86.0 Dehydration; E87.6 Hypokalemia; K44.9 Diaphragmatic hernia without obstruction or gangrene; N39.0 Urinary tract infection, site not specified; Z20.822 Contact with and (suspected) exposure to COVID-19; F32.A Depression, unspecified; I10 Essential (primary) hypertension; J45.909 Unspecified asthma, uncomplicated; K29.70 Gastritis, unspecified, without bleeding; F12.10 Cannabis abuse, uncomplicated; E66.9 Obesity, unspecified; F41.9 Anxiety disorder, unspecified; Z98.51 Tubal ligation status; Z94.4 Liver transplant status; Z87.442 Personal history of urinary calculi; Z68.33 Body mass index [BMI] 33.0-33.9, adult; Z88.5 Allergy status to narcotic agent; Z82.3 Family history of stroke
CPT/HCPCS: 36415; 43239; 74176; 80048; 80053; 80307; 80320; 81001; 81025; 82570; 83605; 83690; 83735; 84100; 84132; 84300; 84702; 85025; 87426; 87804; 97163; G0378; J1885; J2003; J2250; J2405; J2470; J3490